=== PATIENT | male | born 1950 | race Caucasian/White ===

== ENCOUNTER 2025-04-01 19:27 | Inpatient (IN) | payer MEDICARE, OTHER ==
[~2025-04-01] VITALS: Ht 172.7 cm; Wt 73.0 kg
[2025-04-01] MEDS ORDERED: MAG HYDROX/AL HYDROX/SIMETH 30 ML LIQUID UDC PO PRN (19:45)
[2025-04-01] MEDS ORDERED: ACETAMINOPHEN 325 MG TABLET PO PRN (19:45)
[2025-04-01] MEDS ORDERED: ZOLPIDEM 5 MG TABLET PO PRN (19:45)
[2025-04-01] MEDS ORDERED: MAGNESIUM HYDROXIDE 30 ML LIQUID UDC PO PRN (19:45)
[2025-04-01] MEDS ORDERED: QUETIAPINE FUMARATE 25 MG TABLET PO PRN (19:45)
[2025-04-01] MEDS: BLOOD SUGAR DIAGNOSTIC 1 EACH STRIP VI ONE (19:52)
[2025-04-01] MEDS ORDERED: [UNRECOGNIZED DRUG - CODE] PO (20:07)
[2025-04-01] MEDS ORDERED: DIVA125T2 PO (20:07)
[2025-04-01] MEDS ORDERED: PEG15DRO14 EACHEYE (20:07)
[2025-04-01] MEDS ORDERED: AMLO-212 PO (20:07)
[2025-04-01] MEDS ORDERED: MELA5TAB20 PO (20:07)
[2025-04-01] MEDS ORDERED: NA P133E RC (20:07)
[2025-04-01] MEDS ORDERED: OLAN5TAB70 PO (20:07)
[2025-04-01] MEDS ORDERED: MULT-1119 PO (20:07)
[2025-04-01] MEDS ORDERED: BISA10SU61 RC (20:07)
[2025-04-01] MEDS ORDERED: DOCU-141 PO (20:07)
[2025-04-01] MEDS ORDERED: FERR-68 PO (20:07)
[2025-04-01 20:20] VITALS: BP 181/97; TEMP 97.4; O2SAT 99
[2025-04-02 07:59] LABS: GLUCOSE FASTING 89.0 mg/dL (70-115)
[2025-04-02] MEDS ORDERED: CLON0.1T PO (08:39)
[2025-04-02] MEDS ORDERED: MAGN400O6 PO (08:43)
[2025-04-02] MEDS ORDERED: ACET-3752 PO (08:44)
[2025-04-02 09:21] VITALS: BP 144/86; TEMP 98; O2SAT 99
[2025-04-02] MEDS ORDERED: BISACODYL 10 MG SUPP.RECT RC PRN (11:15)
[2025-04-02] MEDS ORDERED: MAGNESIUM HYDROXIDE 30 ML LIQUID UDC PO PRN (11:15)
[2025-04-02] MEDS ORDERED: ACETAMINOPHEN 325 MG TABLET-SA PATIENTS-PAIN ONLY PO PRN (11:15)
[2025-04-02 15:07] VITALS: BP 145/74; TEMP 98; O2SAT 99
[2025-04-02] MEDS: DOCUSATE SODIUM 100 MG CAPSULE PO SCH (17:05)
[2025-04-02] MEDS: ATORVASTATIN 20 MG TABLET PO SCH (21:00)
[2025-04-02] MEDS: AMLODIPINE 5 MG TABLET PO SCH (21:00)
[2025-04-03 07:46] LABS: PLATELET COUNT (AUTO) 194 K/uL (152-348); RED BLOOD CELL COUNT(AUTO) 3.81 MIL/uL (4.06-5.63); RED CELL DISTRIBUTION WIDTH 13.1 % (12.1-16.2); WHITE BLOOD COUNT (AUTO) 3.0 K/uL (3.6-10.2)
[2025-04-03] MEDS: FERROUS SULFATE 325 MG TABEC PO SCH (08:22)
[2025-04-03] MEDS: MULTIVITAMINS,THERAPEUTIC TABLET PO SCH (08:22)
[2025-04-03 08:33] LABS: ASPARTATE AMINOTRANSFERASE 9 U/L (15-37); CREATININE 1.2 mg/dL (0.6-1.3); SODIUM SERUM 141 mmol/L (136-145); TOTAL PROTEIN, SERUM 6.9 g/dL (6.4-8.2); UREA NITROGEN, BLOOD 20 mg/dL (7-18)
[2025-04-03 08:34] VITALS: BP 143/69; TEMP 98; O2SAT 99
[2025-04-03 10:20] LABS: BAND % (MANUAL) 3 % (0-10); EOSINOPHILS % (MANUAL) 2 % (0-8); LYMPHOCYTES % (MANUAL) 49 % (20-40); MONOCYTES % (MANUAL) 17 % (2-10); NEUTROPHILS % (MANUAL) 29 % (42-75); PLATELET ESTIMATE ADEQUATE
[2025-04-03 19:57] VITALS: BP 161/72; TEMP 97.9; O2SAT 98
[2025-04-03] MEDS: QUETIAPINE FUMARATE 25 MG TABLET PO PRN (20:03)
[2025-04-04 08:45] VITALS: BP 154/61; TEMP 98; O2SAT 99
[2025-04-04] MEDS: DIVALPROEX 125 MG TABLET.DR PO SCH (15:13)
[2025-04-04 16:10] VITALS: BP 164/81; TEMP 98; O2SAT 99
[2025-04-04] MEDS: CLONIDINE HCL 0.1 MG TABLET PO PRN (16:24)
[2025-04-04 20:10] VITALS: BP 140/75; TEMP 97.9; O2SAT 96
[2025-04-05 07:57] LABS: PLATELET COUNT (AUTO) 204 K/uL (152-348); RED BLOOD CELL COUNT(AUTO) 4.00 MIL/uL (4.06-5.63); RED CELL DISTRIBUTION WIDTH 13.0 % (12.1-16.2); WHITE BLOOD COUNT (AUTO) 3.0 K/uL (3.6-10.2)
[2025-04-05 08:13] LABS: CREATININE 1.1 mg/dL (0.6-1.3); SODIUM SERUM 143 mmol/L (136-145); UREA NITROGEN, BLOOD 19 mg/dL (7-18)
[2025-04-05 08:34] VITALS: BP 149/82; TEMP 98; O2SAT 99
[2025-04-05] MEDS: METOPROLOL SUCCINATE XL 25 MG TAB.SR.24H PO SCH (08:46)
[2025-04-05 16:39] VITALS: BP 111/60; TEMP 98; O2SAT 99
[2025-04-05 22:30] VITALS: BP 156/82; TEMP 98; O2SAT 99
[2025-04-06] MEDS: risperiDONE-M 0.5 MG TAB.RAPDIS PO PRN (04:00)
[2025-04-06 09:28] VITALS: BP 159/82; TEMP 97.5; O2SAT 98
[2025-04-06 16:56] VITALS: BP 145/79; TEMP 97.7; O2SAT 100
[2025-04-06 19:39] VITALS: BP 163/96; TEMP 97.8; O2SAT 96
[2025-04-07 08:49] VITALS: BP 117/63; TEMP 98; O2SAT 99
[2025-04-07 15:19] VITALS: BP 150/82; TEMP 98; O2SAT 98
[2025-04-07 20:02] VITALS: BP 136/65; TEMP 98.5; O2SAT 99
[2025-04-07] MEDS: ZOLPIDEM 5 MG TABLET PO PRN (20:41)
[2025-04-08 07:45] VITALS: BP 137/73; TEMP 98.4; O2SAT 98
[2025-04-08 15:09] VITALS: BP 142/79; TEMP 98; O2SAT 100
[2025-04-08 20:03] VITALS: BP 153/75; TEMP 98.1; O2SAT 98
[2025-04-09 07:47] VITALS: BP 126/70; TEMP 98; O2SAT 98
[2025-04-09] MEDS ORDERED: DIVALPROEX 125 MG TABLET.DR PO SCH (09:00)
[2025-04-09] MEDS: DIVALPROEX 250 MG TABLET.DR PO SCH (09:10)
[2025-04-09 15:34] VITALS: BP 138/80; TEMP 98; O2SAT 99
[2025-04-09 21:52] VITALS: BP 148/59; TEMP 98; O2SAT 100
[2025-04-10 08:32] VITALS: BP 104/66; TEMP 97.9; O2SAT 99
[2025-04-10 16:25] VITALS: BP 124/68; TEMP 98; O2SAT 98
[2025-04-10 20:04] VITALS: BP 129/76; TEMP 98.3; O2SAT 98
[2025-04-11 08:32] VITALS: BP 126/64; TEMP 97.9; O2SAT 99
[2025-04-11] MEDS: DIVALPROEX 250 MG TABLET.DR PO SCH (13:25)
[2025-04-11 16:07] VITALS: BP 142/71; TEMP 98; O2SAT 98
[2025-04-11 23:19] VITALS: BP 169/92; TEMP 97.6; O2SAT 97
[2025-04-12 08:24] VITALS: BP 149/66; TEMP 97.9; O2SAT 99
[2025-04-12 16:16] VITALS: BP 139/66; TEMP 98; O2SAT 98
[2025-04-12 19:45] VITALS: BP 142/64; TEMP 98.1; O2SAT 98
[2025-04-13 08:05] VITALS: BP 129/72; TEMP 97.4; O2SAT 100
[2025-04-13 16:01] VITALS: BP 113/77; TEMP 98.3; O2SAT 96
[2025-04-13 19:49] VITALS: BP 120/74; TEMP 98.1; O2SAT 96
[2025-04-14 08:01] VITALS: BP_SYST 120; BP_SYST 99; BP_DIAS 61; BP_DIAS 62; TEMP 97.8; TEMP 98; O2SAT 96; O2SAT 98
[2025-04-14 15:12] VITALS: BP 124/78; TEMP 98; O2SAT 98
[2025-04-14 19:56] VITALS: BP 122/68; TEMP 98.1; O2SAT 98
[2025-04-15 09:03] VITALS: BP 102/63; TEMP 98; O2SAT 98
[2025-04-15 15:02] VITALS: BP 104/55; TEMP 98; O2SAT 98
[2025-04-15 20:00] VITALS: BP 164/76; TEMP 98.3; O2SAT 100
== END 2025-04-15 20:15 | DRG 885 ==
LOC: GPS 19:27
PROVIDERS: ADMIT Psychiatry & Neurology Psychiatry; ATTEND Internal Medicine
DX: F29 Unspecified psychosis not due to a substance or known physiological condition (principal); F03.92 Unspecified dementia, unspecified severity, with psychotic disturbance; I10 Essential (primary) hypertension; D50.9 Iron deficiency anemia, unspecified; F03.93 Unspecified dementia, unspecified severity, with mood disturbance; Z59.01 Sheltered homelessness; D72.820 Lymphocytosis (symptomatic); R26.81 Unsteadiness on feet; E78.5 Hyperlipidemia, unspecified; Z79.899 Other long term (current) drug therapy; Z91.148 Patient's other noncompliance with medication regimen for other reason
CPT/HCPCS: 36415; 70030-TC; 80164; 83735; 84100; 84443; 85025; 93005; J3490